=== PATIENT | male | born 1965 | race Two or more races ===

== ENCOUNTER 2024-05-20 05:50 | Day surgery (SDC) | payer OTHER ==
[~2024-05-20] VITALS: Ht 167.6 cm; Wt 68.0 kg
[~2024-05-20 05:50] MED LIST: DOXA4TAB83 PO; ESZO2TAB24 PO; LORA-1121 PO
[2024-05-20] MEDS ORDERED: cefOXitin 2GM/100ML 100 ML IV ONE (06:30)
[2024-05-20] MEDS ORDERED: HEPARIN SODIUM (PORCINE) 5000 UNITS/ML 1ML VIAL ONE ×2 (06:40→06:52)
[2024-05-20] MEDS: HEPARIN SODIUM (PORCINE) 5000 UNITS/ML 1ML VIAL SC ONE (07:00)
[2024-05-20] MEDS ORDERED: ONDANSETRON HCL 4 MG/2 ML VIAL ONE (07:08)
[2024-05-20] MEDS ORDERED: LIDOCAINE 2% (LOCAL ANESTH.) PF 5ml SDV ONE (07:08)
[2024-05-20] MEDS ORDERED: KETOROLAC TROMETH 30 MG/ML 1ML VIAL ONE (07:08)
[2024-05-20] MEDS ORDERED: DexAMETHasone SOD PHOS 10MG/1ML VIAL INJ ONE (07:08)
[2024-05-20] MEDS ORDERED: ePHEDrine SULFATE 50 MG/ML AMP ONE (07:08)
[2024-05-20] MEDS ORDERED: HYDROmorphone HCL 2 MG/ML VL/or syr ONE (07:08)
[2024-05-20] MEDS ORDERED: ROCURONIUM 10MG/ML 10ML VIAL IV ONE (07:08)
[2024-05-20] MEDS ORDERED: PROPOFOL 10 MG/ML 20 ML IV ONE (07:08)
[2024-05-20] MEDS ORDERED: fentaNYL CITRATE 100 MCG/2 ML VL ONE (07:08)
[2024-05-20] MEDS ORDERED: GLYCOPYRROLATE 0.2 MG/ML 1ML VIAL ONE (07:08)
[2024-05-20] MEDS ORDERED: MIDAZOLAM HCL 2MG/2ML 2ml VIAL (1mg/ml) ONE (07:08)
[2024-05-20] MEDS: BUPIVACAINE 0.5% P/F INJ 10 ML VIAL ONE (08:52)
[2024-05-20] MEDS: LIDOCAINE 1% HCL (LOCAL ANESTH.) INJ 20ML MDV ONE (08:52)
[2024-05-20] MEDS ORDERED: SUGAMMADEX 200mg/2ml Vial (100MG/ML) IV ONE (09:24)
[2024-05-20] MEDS ORDERED: HYDR-4902 PO (09:37)
[2024-05-20 09:55] VITALS: BP 135/78; PULSE 86; RESP 14; TEMP 97.3; O2SAT 100
[2024-05-20] MEDS ORDERED: HYDROmorphone HCL 2 MG/ML VL/or syr IV PRN (10:00)
[2024-05-20] MEDS ORDERED: KETAMINE 50mg/ML 1ml syringe ONE (10:18)
[2024-05-20] MEDS: ONDANSETRON HCL 4 MG/2 ML VIAL IV ONE (11:11)
== END 2024-05-20 11:40 | disposition home or self-care (01) ==
LOC: SUR 05:50
DX: K80.10 Calculus of gallbladder with chronic cholecystitis without obstruction (principal); K82.8 Other specified diseases of gallbladder; F41.9 Anxiety disorder, unspecified; Z79.899 Other long term (current) drug therapy; Z90.49 Acquired absence of other specified parts of digestive tract; Z98.890 Other specified postprocedural states; Z87.891 Personal history of nicotine dependence
CPT/HCPCS: 47562; 86850; 86900; 86901; 88304; J0694; J1100; J1171; J1644; J1885; J2003; J2250; J2405; J2704; J3010; J3490